=== PATIENT | male | born 1960 | race Caucasian/White ===

== ENCOUNTER 2017-04-28 16:36 | Emergency (ER) | payer SELFPAY ==
[~2017-04-28] VITALS: Ht 154.9 cm; Wt 78.0 kg
[~2017-04-28 16:36] MED LIST: AMOX-999 PO; IBUP-974 PO; LAC PO
[2017-04-28 17:07] VITALS: BP 132/84
--- NOTE | 2017-04-28 17:11 | NUR ---
Patient to XRAY via wheelchair per tech--from lobby.
--- NOTE | 2017-04-28 17:26 | NUR ---
Patient back from XRAY via wheelchair per tech--to lobby.
--- NOTE | 2017-04-28 17:28 | NUR ---
Patient ambulated to bed 06.
--- NOTE | 2017-04-28 17:30 | NUR ---
Note undone in EDM - 04/28/17 at 1810 by [email or web address] PT PRESENTS TO ER FOR EVALUATION OF DOG BITE TO LEFT UPPER & L FOREARM 1 HR AGO. DENIES N/V/D; AAOX4 WITH EVEN AND STEADY GAIT; LUNGS CLEAR BL; HR EVEN AND REGULAR; PT DENIES ANY FEVER, CP, SOB, OR COUGH AT THIS TIME; PATIENT STATES PAIN OF 10/10 AT THIS TIME; VSS; PATIENT POSITIONED FOR COMFORT; HOB ELEVATED; BEDRAILS UP X2; BED DOWN. ER MD MADE AWARE OF PT STATUS.
--- NOTE | 2017-04-28 17:30 | NUR ---
PT PRESENTS TO ER FOR EVALUATION OF DOG BITE TO LEFT ARM 1 HR AGO. LAC WOUND TO L ARM. DENIES N/V/D; AAOX4 WITH EVEN AND STEADY GAIT; LUNGS CLEAR BL; HR EVEN AND REGULAR; PATIENT STATES PAIN OF 10/10 AT THIS TIME; VSS; PATIENT POSITIONED FOR COMFORT; HOB ELEVATED; BEDRAILS UP X2; BED DOWN. ER MD MADE AWARE OF PT STATUS.
--- NOTE | 2017-04-28 17:33 | NUR ---
ER MD DR LAMBERT EVALUATING PT AT BEDSIDE.
[2017-04-28] MEDS ORDERED: LIDOCAINE 1% 500 MG/50 ML VIAL INJ ONE (17:40)
--- NOTE | 2017-04-28 17:48 | NUR ---
CLEANED LEFT ARM WOUND BY EMT; PT TOLERATED PROCEDURE WELL.
--- NOTE | 2017-04-28 18:13 | NUR ---
SUTURE WOUND TO L ARM DONE BY ER MD DR LAMBERT; PT TOLERATED PROCEDURE WELL.
[2017-04-28] MEDS ORDERED: KETOROLAC 60 MG/2 ML VIAL IM ONE (18:20)
[2017-04-28] MEDS ORDERED: BACITRACIN OINT 500 UNITS/GM PKT TP ONE (18:21)
--- NOTE | 2017-04-28 18:30 | NUR ---
JB FROM ANIMAL CONTROL AT BEDSIDE.
[2017-04-28 18:45] VITALS: BP 128/90
--- NOTE | 2017-04-28 18:46 | NUR ---
Patient discharged with v/s stable. Written and verbal after care instructions given and explained. Patient alert, oriented and verbalized understanding of instructions. Ambulatory with steady gait. All questions addressed prior to discharge. ID band removed. Patient advised to follow up with PMD. Rx of AUGMENTIN& TYLENOL WITH CODEINE given. Patient educated on indication of medication including possible reaction and side effects. Opportunity to ask questions provided and answered.
== END 2017-04-28 18:46 | disposition home or self-care (01) ==
LOC: MED 16:36
DX: S51.012A Laceration without foreign body of left elbow, initial encounter (principal); Z71.6 Tobacco abuse counseling; W54.0XXA Bitten by dog, initial encounter; Y93.89 Activity, other specified; Y92.89 Other specified places as the place of occurrence of the external cause; Y99.8 Other external cause status
CPT/HCPCS: 12002; 73080; 90471; 90715; 96372; 99284; J1885; J2001

== ENCOUNTER 2017-05-08 17:18 | Emergency (ER) | payer SELFPAY ==
[~2017-05-08] VITALS: Ht 162.6 cm; Wt 65.8 kg
[2017-05-08 18:09] VITALS: BP 137/86
--- NOTE | 2017-05-08 18:32 | NUR ---
PT TO BED 7
--- NOTE | 2017-05-08 18:44 | NUR ---
ERMD AT BEDSIDE
--- NOTE | 2017-05-08 18:44 | NUR ---
PATIENT PRESENTS TO ED ANNABEL REPAIN 04/28/2017---LEFT ELBOW INSTRUCTED TO RETURN TODAY FOR SUTURE REMOVAL HX----DENIES RX----NONE; DENIES N/V/D; SKIN IS PINK/WARM/DRY; AAOX4 WITH EVEN AND STEADY GAIT; LUNGS CLEAR BL; HR EVEN AND REGULAR; PT DENIES ANY FEVER, CP, SOB, OR COUGH AT THIS TIME; PATIENT STATES PAIN OF 0/10 AT THIS TIME; VSS; PATIENT POSITIONED FOR COMFORT; HOB ELEVATED; BEDRAILS UP X2; BED DOWN. ER MD MADE AWARE OF PT STATUS.
--- NOTE | 2017-05-08 18:50 | NUR ---
DR JUNIOR AT BEDSIDE REMOVING SUTURES ON LEFT ARM
[2017-05-08] MEDS ORDERED: NEOMYCIN/POLYMYXIN/BACITRACIN 0.9 GM/1 PKT TP ONE (19:15)
[2017-05-08 19:18] VITALS: BP 137/92
--- NOTE | 2017-05-08 19:18 | NUR ---
Patient discharged with v/s stable. Written and verbal after care instructions given and explained. Patient verbalized understanding. Ambulatory with steady gait. All questions addressed prior to discharge. Advised to follow up with PMD.
[2017-05-08] MEDS ORDERED: BACITRACIN OINT 500 UNITS/GM PKT TP ONE (19:19)
== END 2017-05-08 19:18 | disposition home or self-care (01) ==
LOC: MED 17:18
DX: S41.112D Laceration without foreign body of left upper arm, subsequent encounter (principal); F17.210 Nicotine dependence, cigarettes, uncomplicated; W54.0XXD Bitten by dog, subsequent encounter
CPT/HCPCS: 99283

== ENCOUNTER 2022-03-01 02:28 | Emergency (ER) | payer SELFPAY ==
[~2022-03-01] VITALS: Ht 160 cm; Wt 59.9 kg
[2022-03-01 02:30] VITALS: BP 143/95
--- NOTE | 2022-03-01 02:31 | NUR ---
Dr. Recio at triage to exam patient.
[2022-03-01] MEDS ORDERED: PHENYLEPHRINE 0.5% 15 ML BTL NS ONE (02:40)
--- NOTE | 2022-03-01 02:40 | NUR ---
Patient ambulated to bed 3.
--- NOTE | 2022-03-01 02:43 | NUR ---
PATIENT TO CT VIA W/C
--- NOTE | 2022-03-01 02:57 | NUR ---
patient to the bathroom for urine collection
[2022-03-01] MEDS ORDERED: PHENYLEPHRINE 1% 15 ML BTL NS ONE (03:27)
--- NOTE | 2022-03-01 04:03 | NUR ---
ERMD MADE AWARE OF THE INCREASED HEART RATE AND PATIENT INABILITY TO URINATE. ATTEMPTED TO PROVIDED URINE BUT FILLED URINE CUP WITH UNKNOWN CLEAR LIQUID.
--- NOTE | 2022-03-01 04:06 | NUR ---
NORA MICHELE COMFORTABLE SENDING PATIENT HOME WITH VITALS AND NO URINE.
[2022-03-01 04:08] VITALS: BP 154/93
--- NOTE | 2022-03-01 04:08 | NUR ---
Patient discharged. Written and verbal after care instructions given and explained. Ambulatory with steady gait. ID band removed. All questions addressed prior to discharge. Advised to follow up with PMD.
== END 2022-03-01 04:08 | disposition home or self-care (01) ==
LOC: MED 02:28
DX: S09.90XA Unspecified injury of head, initial encounter (principal); R04.0 Epistaxis; F17.210 Nicotine dependence, cigarettes, uncomplicated; Z71.6 Tobacco abuse counseling; Z79.899 Other long term (current) drug therapy; W01.0XXA Fall on same level from slipping, tripping and stumbling without subsequent striking against object, initial encounter; Y93.89 Activity, other specified; Y92.89 Other specified places as the place of occurrence of the external cause; Y99.8 Other external cause status
CPT/HCPCS: 70450; 70486; 99284